=== PATIENT | male | born 1990 | race Caucasian/White ===

== ENCOUNTER 2017-03-31 19:21 | Emergency (ER) | payer OTHER ==
[~2017-03-31] VITALS: Ht 175.3 cm; Wt 83.9 kg
--- NOTE | 2017-03-31 19:35 | NUR ---
HOME MEDS PT DENIES HOME MEDS ON DAILY BASIS
--- NOTE | 2017-03-31 19:49 | ER.PDOC ---
General Chief Complaint: Extremities Stated Complaint: ANKLE INJURY TRAVEL OUT OF US: No Time seen by MD: 19:42 Source: patient Exam Limitations: no limitations History of Present Illness Initial Comments Today, during chasing a client, at work, accidentally slam the door on L hand, then jump the fence, landed on L foot... twisted it; c/o L hand, L ankle and L foot pain, antalgic gait Timing/Duration: 1-3 hours Severity: moderate Modifying Factors: improves with immobilization Associated Symptoms: denies symptoms Allergies: Coded Allergies: morphine (Verified Allergy, Unknown, 03/31/17) Past Medical History Medical History: asthma Social History Smoking: quit less than 1 year Alcohol Use: none Drug Use: none Review of Systems Constitutional: no symptoms reported EENTM: no symptoms reported Respiratory: no symptoms reported Cardiovascular: no symptoms reported Gastrointestinal: no symptoms reported Genitourinary: no symptoms reported All Other Systems: Reviewed and Negative Physical Exam General Appearance: WD/WN, Anxious, Moderate Distress EENT: eyes nml inspection, nml ENT inspection, pharynx nml Neck: Non-Tender, Full Range of Motion Respiratory: chest non-tender, lungs clear, normal breath sounds CVS: reg rate & rhythm, no murmur Gastrointestinal: Normal Bowel Sounds, No Organomegaly, No Pulsatile Mass Back: Normal Inspection, No CVA Tenderness, No Vertebral Tenderness Extremities: Normal Range of Motion, Non-Tender, Normal Inspection, No Pedal Edema, No Calf Tenderness, Normal Capillary Refill, Pelvis Stable, Other ( Locally : L hand , mild bruse , FROM, assoc with mild pain; no edema; mild ttp over lateral MMT area; L ankle TTP, L>M, mild bruse; FROM assoc with moderate pain; L Foot : distal-lateral - moderate TTP; FROM, assoc moderate pain; mild bruse, edema; Antalgic gait.) 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 P : R.I.C.E. - immobilization - OTC Motrin, Tylenol; - PT at home f/u with pcp prn; return to er if condition worsen Departure Time of Disposition: 21:06 Disposition: 01 HOME, SELF-CARE Condition: Stable Additional Instructions: RANJITH REZA MD Mar 31, 2017 19:49
--- NOTE | 2017-03-31 20:31 | NUR ---
PORTABLE XRAY WITH PT
--- NOTE | 2017-03-31 20:48 | DIREP ---
PROCEDURE:XRAY HAND MIN 3 VW-LT COMPARISON:None. INDICATIONS:TRAUMA FINDINGS: BONES:Normal. JOINTS:Normal. SOFT TISSUES:Normal. OTHER:No additional findings. CONCLUSION:No acute bony abnormality. Dictated by: Michelle Parham MD on 03/31/2017 at 08:47 PM
--- NOTE | 2017-03-31 20:49 | DIREP ---
PROCEDURE:XRAY ANKLE MIN 3VWS-LT COMPARISON:None. INDICATIONS:trauma FINDINGS: BONES:Normal. JOINTS:Normal. SOFT TISSUES:Normal. OTHER:No additional findings. CONCLUSION:No acute bony abnormality. Dictated by: Michelle Parham MD on 03/31/2017 at 08:48 PM
--- NOTE | 2017-03-31 20:50 | DIREP ---
PROCEDURE:XRAY FOOT MIN 3 VWS-LT COMPARISON:None. INDICATIONS:TRAUMA FINDINGS: BONES:Normal. JOINTS:Normal. SOFT TISSUES:Normal. OTHER:No additional findings. CONCLUSION:No acute bony abnormality. Dictated by: Michelle Parham MD on 03/31/2017 at 08:49 PM
--- NOTE | 2017-03-31 21:09 | NUR ---
DISCHARGE DISCHARGE INSTRUCTIONS AND MEDICATIONS DISCUSSED. PT VERBALIZED UNDERSTANDING. ENCOURAGED TO RETURN FOR ANY CONCERNS.
[2017-03-31 21:44] VITALS: BP 136/70
== END 2017-03-31 21:09 | disposition home or self-care (01) ==
LOC: ER 19:21
DX: S60.222A Contusion of left hand, initial encounter (principal); S93.602A Unspecified sprain of left foot, initial encounter; S93.402A Sprain of unspecified ligament of left ankle, initial encounter; J45.909 Unspecified asthma, uncomplicated; Z87.891 Personal history of nicotine dependence; Z88.5 Allergy status to narcotic agent; X50.1XXA Overexertion from prolonged static or awkward postures, initial encounter; Y93.89 Activity, other specified; Y92.89 Other specified places as the place of occurrence of the external cause; Y99.0 Civilian activity done for income or pay
CPT/HCPCS: 99284; 73130-LT; 73610-LT; 73630-LT

== ENCOUNTER 2018-08-29 02:15 | Emergency (ER) | payer OTHER ==
[~2018-08-29] VITALS: Ht 175.3 cm; Wt 90.7 kg
[2018-08-29 02:35] VITALS: BP 135/85
--- NOTE | 2018-08-29 02:58 | ER.PDOC ---
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 Pt got dizzy, lightheaded, nauseated at scene. Still feels somewhat lightheaded. No headache. Onset: just prior to arrival Where: other (another person's home) Exposure to: CO Duration: 5-8 min Context: Close Space Entrapment Severity: mild Associated Symptoms: cough, dizziness, nausea/vomiting, irritated mouth, irritated nose Allergies: Coded Allergies: morphine (Verified Allergy, Unknown, 03/31/17) Past Medical History Medical History: no pertinent history Social History Smoking: non-smoker Alcohol Use: none Drug Use: none Review of Systems Constitutional: see HPI Eyes: no symptoms reported Ears: no symptoms reported Nose: other (slight irritiation) Mouth: no symptoms reported Throat: no symptoms reported Respiratory: see HPI; denies cough, denies orthopnea, denies shortness of breath, denies stridor, denies wheezing Cardiovascular: lightheadedness Gastrointestinal: nausea (improving) Musculoskeletal: no symptoms reported Skin: no symptoms reported Psychiatric/Neurological: no symptoms reported, other (light-headed) All Other Systems: Reviewed and Negative Physical Exam General Appearance: alert, no distress EENT: eyes nnl, PERRL, no nystagmus, ENT nml inspection, pharynx nml Neck: nml inspection Respiratory: chest non-tender, no resp. distress, breath sounds nml CVS: reg. rate & rhythm, heart sounds nml Abdomen: soft, non-tender, no organomegaly, nml bowel sounds Skin: no rash, nml color, warm/dry Extremities: non-tender, nml ROM, no pedal edema Neuro/psych: nml orientation, nml mood/affect Cranial Nerves: nml as tested Sensorimotor: no motor deficit, no sensory deficit Results/Orders Results/Orders Laboratory Tests Test 08/29/18 02:50 Blood Gas Sample Site RT RADIAL ARTERY Blood Gas pH 7.406 (7.350-7.450) Blood Gas PCO2 35.5 mmHg (35.0-45.0) Blood Gas PO2 115.9 mmHg (75.0-100.0) Blood Gas HCO3 21.8 mmol/L (22.0-26.0) Blood Gas Base Excess -2.2 mmol/L (-2.0-2.0) Luis Alberto Test POSITIVE Arterial Blood Oxygen Saturation 97.9 % (95-) Deoxyhemoglobin 2.1 % (0.2-0.6) Carboxyhemoglobin 1.3 % (0.5-1.5) Methemoglobin 0.5 % (0.2-0.6) Total Hemoglobin 16.3 % (13.5-17.5) Total Oxygen Concentration 22.1 % (13.5-17.5) Lactic Acid (Blood Gas) 1.3 MMOL/L (0.5-1.0) Blood Gas Temperature 37.0 Oxygen Delivery Method (LAB) NON-REBREATHER MASK FiO2 100 % (20-101) Bicarbonate 22.9 mmol/L (23-27) Progress Progress Pt with small level of CO, will d/c home. Pt's symptoms improved significantly with O2 administration. Departure Time of Disposition: 03:29 Disposition: 01 HOME, SELF-CARE Impression: Primary Impression: Carbon monoxide exposure Condition: Stable Referrals: PCP,UNKNOWN (PCP) PRIMARY CARE PROVIDER Duration or Time Spent with Pa: 20 CECILIA BAUM DO Aug 29, 2018 02:58
[2018-08-29 03:23] LABS: ABG PCO2 35.5 mmHg (35.0-45.0); ABG PH 7.406 (7.350-7.450); BE(B) -2.2 mmol/L (-2.0-2.0); HCO3act 21.8 mmol/L (22.0-26.0); pO2 115.9 mmHg (75.0-100.0)
[2018-08-29 03:45] VITALS: BP 130/82
[2018-08-29 04:13] VITALS: BP 130/82
== END 2018-08-29 03:47 | disposition home or self-care (01) ==
LOC: ER 02:15
DX: R42 Dizziness and giddiness (principal); R11.2 Nausea with vomiting, unspecified; R05 Cough; Z57.5 Occupational exposure to toxic agents in other industries; Z77.29 Contact with and (suspected) exposure to other hazardous substances; Z88.5 Allergy status to narcotic agent
CPT/HCPCS: 36415; 36600; 82803; 99284